=== PATIENT | male | born 1960 | race Caucasian/White ===

== ENCOUNTER → 2024-02-04 | Outpatient (CLI) | payer MEDICARE, BC ==
[2024-02-04 15:22] LABS: African American GFR (CKD) >90 (>60 ml/min/1.73 sqM); Blood Urea Nitrogen 16 mg/dL (9-20); Non-African American GFR(CKD) >90 (>60 ml/min/1.73 sqM)
--- NOTE | 2024-02-04 18:01 | CT ---
EXAMINATION TYPE: CT angio thor/abd pel aorta CT DLP: 1510.2 mGycm, Automated exposure control for dose reduction was used. DATE OF EXAM: 02/04/2024 4:08 PM COMPARISON: None. CLINICAL INDICATION:Male, 63 years old with history of I71.20 THORACIC AORTIC ANEURYSM; [facility], f/u for thoracic aortic aneurysm, without rupture. TECHNIQUE: Dissection protocol: Multiple axial CT images of the chest, abdomen, and pelvis were obtai heather prior and to the administration of IV contrast. 3-D reformats and maximum intensity projection fo rmat were performed on a separate workstation. Then the abdomen was scanned after administration of 1 00 cc of Isovue 370 IV contrast. FINDINGS: ARTERIAL VASCULATURE: There is no evidence of aortic dissection, aneurysm or acute aortic injury. Gre at arch vessels patent and normal in course and caliber. Ascending thoracic aortic aneurysm measuring up to 4.2 cm. No extension into the aortic arch. No abdominal aortic aneurysm. The aortic root is no rmal in caliber measuring up to 3.4 cm. The descending thoracic aorta is normal in caliber measuring up to 2.8 cm. The celiac axis, SMA, single bilateral renal arteries, and JIM are patent. Mild calcifi ed plaque at the origin of left renal artery and celiac access and SMA without stenotic in stenosis. The bilateral common iliac arteries, and external/internal iliac arteries are widely patent. The visu alized common femoral arteries are widely patent. PULMONARY ARTERIAL VASCULATURE: Normal caliber. No evidence of filling defect to suggest pulmonary em bolus. VENOUS SYSTEM: Unremarkable. Lungs/pleura: No pleural effusion, pneumothorax, focal consolidation. Minimal atelectasis or scarring within the lingula. Heart: Within normal limits. No pericardial effusion. Mediastinum: No evidence of adenopathy. Lower Neck: No significant findings. Soft tissues: Bilateral gynecomastia. Abdomen: Liver: Right hepatic dome 1.7 cm simple cyst. Additional smaller subcentimeter hypodense foci within the right hepatic lobe which is too small accurately characterize but likely represents a cyst. Gallbladder and Bile ducts: Unremarkable. Pancreas: Unremarkable. Spleen: Unremarkable. Adrenal glands: Left adrenal gland is unremarkable. Right adrenal gland 2.4 cm lesion with Hounsfield unit of -1 on noncontrast imaging. This is consistent with a benign lipid rich adenoma Kidneys and Ureters: Unremarkable. No hydronephrosis. Stomach and Bowel: No focal bowel wall thickening or surrounding inflammatory changes. Redundant sigm oid colon. No evidence of bowel obstruction. Peritoneum: No evidence of pneumoperitoneum, free fluid, or adenopathy. Postsurgical changes within the right inguinal region with surgical clips identified. Bladder: Unremarkable. Reproductive: Enlarged prostate gland measuring 6.0 cm in transverse dimension. Central prostate calc ifications. Abdominal wall/soft tissues: Unremarkable. Musculoskeletal: The osseous structures appear intact. Mild degenerative changes of bilateral SI join ts with anterior bridging. IMPRESSION: 1. Ascending thoracic aortic aneurysm measuring up to 4.2 cm. No evidence for intramural hematoma or dissection. No evidence for abdominal aortic aneurysm. 2. Right benign adrenal lipid rich adenoma. 3. Prostamegaly. [facility], , 02/04/2024 5:59 PM
== END | disposition home or self-care (01) ==
LOC: RADCTMAIN 14:40
PROVIDERS: ATTEND Internal Medicine Cardiovascular Disease
DX: I71.21 Aneurysm of the ascending aorta, without rupture (principal); N40.0 Benign prostatic hyperplasia without lower urinary tract symptoms; E27.8 Other specified disorders of adrenal gland
CPT/HCPCS: 82565; 84520; 71275; 36415; 74174; Q9967